=== PATIENT | female | born 1975 | race Caucasian/White ===

== ENCOUNTER 2022-01-27 19:00 | Emergency (ER) | payer OTHER, SELFPAY ==
[2022-01-27 19:13] VITALS: BP 155/105; PULSE 95; RESP 18; TEMP 36.6; O2SAT 97; BMI 35.2
--- NOTE | 2022-01-27 19:13 | ED.GENADULT ---
HPI - General Adult General Chief complaint: Abdominal Pain Stated complaint: ABD pain Time Seen by Provider: 01/27/22 19:06 Source: patient Mode of arrival: Ambulatory Limitations: no limitations History of Present Illness HPI narrative: 46-year-old female who is here for evaluation approximately 1 week of right-sided abdominal discomfort. She has had some diarrhea but having bowel movements does not change her pain at all. She is having some symptoms consistent with a urinary tract infection but she was at the doctor's office yesterday with her son and had her urine checked and there was no signs of any infection. She denies any fevers. She has had her gallbladder removed and also hysterectomy. She also has a lap band that was placed many years ago. Pain is in the middle of her abdomen around her umbilicus into the right side. Patient has not tried anything for the symptoms prior to arrival. Related Data Home Medications Medication Instructions Recorded Confirmed alprazolam 1 mg tablet 1 mg PO HSP PRN ##0 03/28/16 02/13/18 eletriptan 40 mg tablet (Relpax) 40 mg PO PRN PRN ##0 03/28/16 02/13/18 olopatadine 0.1 % eye drops 5 ml OP Q DAY ##0 03/28/16 02/13/18 (Patanol) sertraline 50 mg tablet (Zoloft) 25 mg PO QDAY ##0 03/28/16 02/13/18 zolmitriptan 5 mg nasal spray 5 mg intranasal PRN PRN ##0 03/28/16 02/13/18 (Zomig) levothyroxine 175 mcg tablet 0.175 mg PO QDAY ##0 08/21/16 02/13/18 (Synthroid) liothyronine 25 mcg tablet 40 mcg PO QDAY ##0 09/05/16 02/13/18 (Cytomel) onabotulinumtoxinA 200 unit 200 unit INJ ##0 06/11/17 02/13/18 solution for injection (Botox) thyroid (pork) 65 mg tablet 325 mg PO DAILY 01/21/19 01/21/19 (Nature-Throid) hydrocortisone 5 mg tablet 25 mg PO QDAY #0 tabs 05/06/19 05/06/19 progesterone micronized PO BEDTIME 05/06/19 05/06/19 thyroid 60 mg tablet 300 mg PO DAILY 05/06/19 05/06/19 Previous Rx's Medication Instructions Recorded prednisone 20 mg tablet 20 mg PO PRN PRN #12 tabs 06/17/18 erenumab-aooe 140 mg/mL 140 mg SUBCUT QMONTH #1 mL 01/07/19 subcutaneous auto-injector (Aimovig Autoinjector) frovatriptan 2.5 mg tablet 2.5 mg PO .COMPLEX PRN migraine 03/17/19 headache #12 tabs prednisone 10 mg tablet 10 mg PO DAILY #30 tabs 03/27/19 estradiol 1 mg tablet 1 mg PO QDAY #90 tabs 05/01/19 galcanezumab-gnlm 120 mg/mL 120 mg SUBCUT QMONTH #1 mL 05/19/19 subcutaneous pen injector (Emgality Pen) galcanezumab-gnlm 120 mg/mL 240 mg (2 mL) SUBCUT ONCE #2 mL 05/19/19 subcutaneous pen injector (Emgality Pen) dicyclomine 10 mg capsule 10 mg PO TID PRN abdominal 01/27/22 discomfort #21 caps metoclopramide HCl 10 mg tablet 10 mg PO Q6H PRN nausea and 01/27/22 (Reglan) vomiting #14 tabs Allergies Allergy/AdvReac Type Severity Reaction Status Date / Time erythromycin base Allergy Severe HIVES Verified 01/27/22 19:13 [ERYTHROMYCIN BASE] Sulfa (Sulfonamide Allergy Severe HIVES, Verified 01/27/22 19:13 Antibiotics) NAUSEA AND [SULFA (SULFONAMIDE VOMITING ANTIBIOTICS)] morphine [MORPHINE] AdvReac Severe NAUSEA AND Verified 01/27/22 19:13 VOMITING ondansetron [ONDANSETRON] AdvReac Severe SEVERE Verified 01/27/22 19:13 CONSTIPATION Review of Systems Constitutional Constitutional: Reports system reviewed and no additional complaints, except as documented Cardiovascular Cardiovascular: Reports system reviewed and no additional complaints, except as documented Respiratory Respiratory: Reports system reviewed and no additional complaints, except as documented Gastrointestinal Gastrointestinal: Reports system reviewed and no additional complaints, except as documented Genitourinary Genitourinary: Reports system reviewed and no additional complaints, except as documented Integumentary/Breasts Skin/Breast: Reports system reviewed and no additional complaints, except as documented Neurologic Neurologic: Reports system reviewed and no additional complaints, except as documented Hematologic/Lymphatic On Anticoagulants: No Patient History Medical History Chronic migraine Postoperative pain Surgical History Status post cholecystectomy Family History Mother Hypertension Hyperlipidemia Father Hypothyroid Hypertension Hyperlipidemia Social History Smoking Status: Never smoker Smoking Status: Never smoker Exam Initial Vital Signs Initial Vital Signs: Vital Signs Temperature 97.8 F 01/27/22 19:13 Pulse Rate 95 H 01/27/22 19:13 Respiratory Rate 18 01/27/22 19:13 Blood Pressure 155/105 H 01/27/22 19:13 Pulse Oximetry 97 01/27/22 19:13 Oxygen Delivery Method 01/27/22 19:13 Const General: cooperative, comfortable and No ill appearing HENMT Head: normal to inspection and normocephalic Resp Effort & Inspection: normal respiratory effort Auscultation: clear to auscultation bilaterally Cardio Rate: regular rate Rhythm: regular rhythm GI Inspection: normal to inspection Palpation: soft, No firm and tender (Right lower quadrant) Back/Spine/Pelvis Back: No CVA tenderness Skin General: no rashes or lesions noted Neuro General: patient alert, patient awake and moves all extremities Extrem General: normal to inspection and capillary refill normal Psych Appearance: grossly normal and well kempt Course Orders Ordered: ED Orders 01/27/22 19:15 CT abdomen pelvis w con Stat 01/27/22 19:26 Complete Blood Count AUTO DIFF Stat Comprehensive Metabolic Panel Stat Lipase Stat Discontinued Medications Dicyclomine HCl (Dicyclomine 10 Mg Capsule) 10 mg PO NOW ONE Stop: 01/27/22 21:16 Last Admin: 01/27/22 21:51 Dose: 10 mg Documented By: NR Sodium Chloride (Normal Saline 0.9%) 1,000 mls @ 1,000 mls/hr IV BOLUS ONE Stop: 01/27/22 20:13 Last Infusion: 01/27/22 21:52 Dose: 0 mls/hr Documented By: Admin: 01/27/22 20:03 Dose: 1,000 mls/hr Documented By: NR Loperamide HCl (Loperamide 2 Mg Capsule) 4 mg PO NOW ONE Stop: 01/27/22 21:16 Last Admin: 01/27/22 21:51 Dose: 4 mg Documented By: TD Ondansetron HCl (Ondansetron 4 Mg Odt Prepack) 1 bottle MISC SEEINSTR ONE Stop: 01/27/22 21:59 Vital Signs Vital signs: Vital Signs - 8 hr 01/27/22 19:13 01/27/22 21:06 01/27/22 21:13 Temperature 97.8 F Pulse Rate 95 H 68 66 Respiratory Rate 18 16 Blood Pressure 155/105 H 127/97 H Pulse Oximetry 97 100 97 Oxygen Delivery Method Room Air 01/27/22 22:12 Temperature Pulse Rate Respiratory Rate Blood Pressure 127/92 H Pulse Oximetry Oxygen Delivery Method Medical Decision Making Lab Data Lab results reviewed: Yes I reviewed the patient's lab results. Result diagrams: 01/27/22 19:26 01/27/22 19:26 Labs: Lab Results 01/27/22 01/27/22 Range/Units 19:26 19:26 WBC 11.0 (4.5-11.0) X10^3/uL RBC 4.71 (4.0-5.2) X10^6/uL Hgb 14.4 (12.0-16.0) g/dL Hct 41.9 (36-46) % MCV 88.9 (80-100) fL MCH 30.6 (26-34) PG MCHC 34.4 (30-36) % RDW 12.9 (11.6-14.8) % Plt Count 303 (150-400) X10^3/uL Neut % (Auto) 54.9 (50-75) % Lymph % (Auto) 31.8 (25-40) % [place] % (Auto) 6.2 (3-14) % Eos % (Auto) 6.5 H (2-4) % Baso % (Auto) 0.6 (0-2) % Neut # (Auto) 6000 (2526-3305) /uL Lymph # (Auto) 3500 (5434-2298) /uL [place] # (Auto) 700 (0-900) /uL Eos # (Auto) 700 H (0-450) /uL Baso # (Auto) 100 (0-100) /uL Sodium 140 (137-145) mmol/L Potassium 3.8 (3.4-5.1) mmol/L Chloride 104 (98-107) mmol/L Carbon Dioxide 26 (22-32) mmol/L BUN 11 (7-17) mg/dL Creatinine 0.76 (0.52-1.04) mg/dL Estimated GFR > 60 (>60) mL/min BUN/Creatinine Ratio 14.5 (6-22) Glucose 85 (70-100) mg/dL Calcium 9.6 (8.4-10.2) mg/dL Total Bilirubin 0.4 (0.2-1.3) mg/dL AST 31 (14-36) IU/L ALT 39 H (<35) IU/L Alkaline Phosphatase 78 (38-126) U/L Total Protein 7.6 (6.3-8.2) g/dL Albumin 4.4 (3.5-5.0) g/dL Globulin 3.2 (1.7-4.1) g/dL Albumin/Globulin Ratio 1.4 (1.0-2.8) Lipase 102 (23-300) U/L Point of Care Testing Test Results Negative Urine Dip Bedside Urine Glucose Negative Bedside Urine Bilirubin - Negative Bedside Urine Ketone - Negative Bedside Urine Occult Blood - Negative Bedside Urine Protein - Negative Bedside Urine Urobilinogen - Negative Bedside Urine Nitrite - Negative Bedside Urine Leukocytes - Negative Esterase Point of care testing: Point of Care Testing Test Results Negative Urine Dip Bedside Urine Glucose Negative Bedside Urine Bilirubin - Negative Bedside Urine Ketone - Negative Bedside Urine Occult Blood - Negative Bedside Urine Protein - Negative Bedside Urine Urobilinogen - Negative Bedside Urine Nitrite - Negative Bedside Urine Leukocytes - Negative Esterase Imaging Data CT scan - abdomen/pelvis: Radiologist's Impression: [address] [address] [address] Scan Report Signed Patient: Latricia Ennis MR#: [id number] : 1975 Acct:[id number] Age/Sex: 46 / F Date of Service: 01/27/22 Loc: ED Accession Number: [id number] ?? Procedure: CT abdomen pelvis w con Ordering Provider: Slava Collazo D.O. PROCEDURE:? CT ABDOMEN PELVIS W CON ? INDICATIONS:? RLQ abd pain ? TECHNIQUE:? After the administration of intravenous contrast, axial sections acquired from the lung bases to the pubic symphysis.? Coronal and sagittal reformats were performed.? For radiation dose reduction, the following was used:? automated exposure control, adjustment of mA and/or kV according to patient size.? ? COMPARISON:? None. ? FINDINGS:? Image quality:? Excellent.? ? Lung bases:? Unremarkable. Heart:? No significant findings. ? ABDOMEN: Liver:? Unremarkable.? ? Gallbladder:? Surgically absent? ? Biliary ducts:? Unremarkable.? ? Pancreas:? Unremarkable.? ? Spleen:? Unremarkable.? ? Adrenal Glands:? Unremarkable.? ? Kidneys and Ureters:? Unremarkable.? ? ? Stomach and Bowel:? A lap band is noted.? Stomach, small bowel loops, and colon are unremarkable.? A normal appendix partially containing gas is noted. Peritoneum:? No abnormal intraperitoneal fluid.? No free air.? ? Ventral Wall: ? No hernias.? Abdominal Nodes:? No retroperitoneal or mesenteric adenopathy by size criteria.? Vessels:? Aorta and inferior vena cava are normal in size.? ? PELVIS: Pelvic Organs:? Uterus is surgically absent.? Otherwise unremarkable. Bladder:? Unremarkable.? ? Pelvic Nodes: No enlarged lymph nodes.? Miscellaneous: No hernias are seen. ? ? ? Bones:? No lytic or blastic bony lesions.? No compression fractures.? Small left paracentral disc protrusion noted at L4-L5. ? ? IMPRESSION: ? 1. No evidence of acute abdominal process.? Normal appendix. ? 2. Incidental note made of small disc protrusion at L4-L5. ? ? Dictated by: Rashaun Porter M.D. on 01/27/2022 at 20:02 ? ? Approved by: Rashaun Porter M.D. on 01/27/2022 at 20:04? MDM Narrative Medical decision making narrative: Labs are unremarkable, urine is unremarkable, CT scan shows no acute pathology. Patient has been having diarrhea. She was camping with a school group just prior to the onset of the diarrhea but states that she was drinking water from the faucet or bottled water. There was no reports of any other sickness. She is unable to provide us a stool sample here in the ER. She stated that she did feel somewhat better after the dicyclomine. You will hold on any antibiotics for now since the patient is unable to provide us a stool sample. She is well hydrated. No indication for surgical consultation. Indication for further radiologic studies. I did discuss with her the lack of a definitive diagnosis. She was given return precautions follow-up instructions. She expressed understanding and agreement. Discharge Plan Departure Patient Disposition: Home Clinical Impression: Abdominal pain, Diarrhea Instructions: DI for Abdominal Pain-Adult Activity Restrictions/Additional Instructions: A medication for nausea and also medication for the stomach pain was sent to [facility] per your request. These are as needed medicines you can take them as directed. You were also given a dose of Imodium/loperamide. This is an antidiarrheal medicine. Contact your primary doctor for a follow-up. Return to the emergency department for any new or worsening symptoms. Prescriptions: New metoclopramide HCl [Reglan] 10 mg tablet 10 mg PO Q6H PRN (Reason: nausea and vomiting) Qty: 14 0RF dicyclomine 10 mg capsule 10 mg PO TID PRN (Reason: abdominal discomfort) Qty: 21 0RF No Action alprazolam 1 MG tablet 1 mg PO HSP PRNQty: 0 olopatadine [Patanol] 5 ML drops 5 ml OP Q DAY Qty: 0 sertraline [Zoloft] 50 MG tablet 25 mg PO QDAY Qty: 0 eletriptan [Relpax] 40 MG tablet 40 mg PO PRN PRNQty: 0 zolmitriptan [Zomig] 5 MG spray,non-aerosol 5 mg Intranasal PRN PRNQty: 0 levothyroxine [Synthroid] 175 MCG tablet 0.175 mg PO QDAY Qty: 0 liothyronine [Cytomel] 25 MCG tablet 40 mcg PO QDAY Qty: 0 onabotulinumtoxinA [Botox] 200 UNIT recon soln 200 unit INJ Qty: 0 prednisone 20 mg tablet 20 mg PO PRN PRNQty: 12 0RF frovatriptan 2.5 mg tablet 2.5 mg PO .COMPLEX PRN (Reason: migraine headache) Qty: 12 6RF Rx Instructions: 2.5 mg PO 1 at onset, may repeat after 2 hours. PRN; 1 at onset, may repeat after 2 hours. prednisone 10 mg tablet 10 mg PO DAILY Qty: 30 0RF Rx Instructions: Four per day for 4 days, 3 daily for 3 days, 2 a day for 2 days, 1 a day for 1 day, DC estradiol 1 mg tablet 1 mg PO QDAY Qty: 90 0RF Rx Instructions: Please schedule appointment for refills. hydrocortisone 5 mg tablet 25 mg PO QDAY Qty: 0 Emgality Pen 120 mg/mL pen injector 120 mg SUBCUT QMONTH Qty: 1 5RF Emgality Pen 120 mg/mL pen injector 240 mg SUBCUT ONCE Qty: 2 0RF Rx Instructions: as a single dose; administer as two 120 mg injections at separate sites Loading dose Nature-Throid 65 mg tablet 325 mg PO DAILY Aimovig Autoinjector 140 mg/mL auto-injector 140 mg SUBCUT QMONTH Qty: 1 6RF progesterone micronized PO BEDTIME thyroid 60 mg tablet 300 mg PO DAILY Referrals: Howard Momin ND [Primary Care Provider] - Visit Report Forms: Patient Portal/API
--- NOTE | 2022-01-27 19:15 | DI.CT.S_ITS ---
PROCEDURE: CT ABDOMEN PELVIS W CON INDICATIONS: RLQ abd pain TECHNIQUE: After the administration of intravenous contrast, axial sections acquired from the lung bases to the pubic symphysis. Coronal and sagittal reformats were performed. For radiation dose reduction, the following was used: automated exposure control, adjustment of mA and/or kV according to patient size. COMPARISON: None. FINDINGS: Image quality: Excellent. Lung bases: Unremarkable. Heart: No significant findings. ABDOMEN: Liver: Unremarkable. Gallbladder: Surgically absent Biliary ducts: Unremarkable. Pancreas: Unremarkable. Spleen: Unremarkable. Adrenal Glands: Unremarkable. Kidneys and Ureters: Unremarkable. Stomach and Bowel: A lap band is noted. Stomach, small bowel loops, and colon are unremarkable. A normal appendix partially containing gas is noted. Peritoneum: No abnormal intraperitoneal fluid. No free air. Ventral Wall: No hernias. Abdominal Nodes: No retroperitoneal or mesenteric adenopathy by size criteria. Vessels: Aorta and inferior vena cava are normal in size. PELVIS: Pelvic Organs: Uterus is surgically absent. Otherwise unremarkable. Bladder: Unremarkable. Pelvic Nodes: No enlarged lymph nodes. Miscellaneous: No hernias are seen. Bones: No lytic or blastic bony lesions. No compression fractures. Small left paracentral disc protrusion noted at L4-L5. IMPRESSION: 1. No evidence of acute abdominal process. Normal appendix. 2. Incidental note made of small disc protrusion at L4-L5. Dictated by: Rashaun Porter M.D. on 01/27/2022 at 20:02 Approved by: Rashaun Porter M.D. on 01/27/2022 at 20:04
[2022-01-27 19:47] LABS: Add Manual Diff / Slide Review NO; Basophils Absolute Auto 100 /uL (0-100); Basophils Percent Auto 0.6 % (0-2); Eosinophils Absolute Auto 700 /uL (0-450); Eosinophils Percent Auto 6.5 % (2-4); Hematocrit 41.9 % (36-46); Hemoglobin 14.4 g/dL (12.0-16.0); Lymphocytes Absolute Auto 3500 /uL (1100-4500); Lymphocytes Percent Auto 31.8 % (25-40); Mean Corpuscular HGB Conc 34.4 % (30-36); Mean Corpuscular Hemoglobin 30.6 PG (26-34); Mean Corpuscular Volume 88.9 fL (80-100); Monocytes Absolute Auto 700 /uL (0-900); Monocytes Percent Auto 6.2 % (3-14); Neutrophils Absolute Auto 6000 /uL (1500-7000); Neutrophils Percent Auto 54.9 % (50-75); Platelet Count 303 X10^3/uL (150-400); Red Blood Cell Count 4.71 X10^6/uL (4.0-5.2); Red Cell Distribution Width 12.9 % (11.6-14.8)
[2022-01-27 19:52] LABS: Alanine Aminotransferase 39 IU/L (<35); Albumin 4.4 g/dL (3.5-5.0); Albumin Globulin Ratio 1.4 (1.0-2.8); Alkaline Phosphatase 78 U/L (38-126); Aspartate Aminotransferase 31 IU/L (14-36); BUN Creatinine Ratio 14.5 (6-22); Bilirubin Total 0.4 mg/dL (0.2-1.3); Blood Urea Nitrogen 11 mg/dL (7-17); Calcium 9.6 mg/dL (8.4-10.2); Carbon Dioxide 26 mmol/L (22-32); Chloride 104 mmol/L (98-107); Estimated Glomerular Filt Rate > 60 mL/min (>60); Globulin 3.2 g/dL (1.7-4.1); Glucose 85 mg/dL (70-100); HEMOLYSIS < 15 (0-50); Lipase 102 U/L (23-300); Potassium 3.8 mmol/L (3.4-5.1); Sodium 140 mmol/L (137-145); Total Protein 7.6 g/dL (6.3-8.2)
[2022-01-27] MEDS: SODIUM CHLORIDE 0.9% 1,000 ML 1000 ML IV (20:03)
[2022-01-27] MEDS: ONDANSETRON 4 MG/2 ML INJ (20:54)
[2022-01-27 21:06] VITALS: PULSE 68; O2SAT 100
[2022-01-27 21:13] VITALS: BP 127/97; PULSE 66; RESP 16; O2SAT 97
[2022-01-27] MEDS: DICYCLOMINE 10 MG CAPSULE PO (21:51)
[2022-01-27] MEDS: LOPERAMIDE 2 MG CAPSULE 4 MG PO (21:51)
[2022-01-27 22:12] VITALS: BP 127/92
== END 2022-01-27 22:23 | disposition home or self-care (01) ==
PROVIDERS: Emergency Provider Emergency Medicine; PCP Registered Nurse
DX: R10.31 Right lower quadrant pain (principal); R19.7 Diarrhea, unspecified
CPT/HCPCS: 36415; 74177; 80053; 81003; 81025; 83690; 85025; 96360; 96361; 99284; J2405; Q9967

== ENCOUNTER → 2022-10-26 08:25 | Outpatient (CLI) | payer OTHER, SELFPAY ==
--- NOTE | 2022-10-26 08:27 | DI.RAD.S_ITS ---
PROCEDURE: FL UPPER GI SERIES INDICATIONS: Dysphagia, unspecified. The patient has recent gastric banding takedown. COMPARISON: [facility], CT, CT SINUS WITHOUT CONTRAST, 11/24/2021, 9:26. [facility], CT, CT ABDOMEN PELVIS W CON, 01/27/2022, 19:35. FINDINGS: KUB: Preprocedural librarian assistant film demonstrates a normal bowel gas pattern. No suspicious abdominal calcifications. Visualized solid organ contours appear normal. Bony structures appear unremarkable. Esophagus: Esophageal mucosa is normal on air-contrast views. There is normal esophageal peristalsis. A small traction diverticulum is seen in the distal esophagus above the gastroesophageal junction. There is mild focal narrowing of the distal esophagus with transient obstruction of the calibrated barium tablet. No hiatal hernia. There is mild gastroesophageal reflux. There is contrast pooling at the gastroesophageal junction, probably related to recent surgery. Stomach: The stomach is normally distensible, with normal rugal fold thickness. No mucosal masses or ulcers. Pylorus and duodenal bulb appear normal in morphology. Duodenal folds are normal in thickness as well. IMPRESSION: 1. There is mild narrowing at the gastroesophageal junction, causing transient obstruction of a calibrated barium tablet. 2. A small traction diverticulum is present in the distal esophagus just above the gastroesophageal junction. 3. Pooling of contrast around the GE junction is noted, probably postsurgical in nature. Recommend correlation with surgical history. 4. Mild gastroesophageal reflux. 5. Otherwise normal stomach and duodenum. Dictated by: Sheila Allan M.D. on 10/26/2022 at 12:56 Approved by: Sheila Allan M.D. on 10/26/2022 at 13:09
== END ==
PROVIDERS: PCP Registered Nurse; Referring Provider Physician Assistant; Visit Provider Physician Assistant
DX: R13.10 Dysphagia, unspecified (principal); K22.2 Esophageal obstruction; K22.5 Diverticulum of esophagus, acquired; K21.9 Gastro-esophageal reflux disease without esophagitis
CPT/HCPCS: 74240